=== PATIENT | female | born 1945 | race Hispanic/Latino ===

== ENCOUNTER 2020-05-04 16:55 | Emergency (ER) | payer MEDICARE ==
--- NOTE | 2020-05-04 17:10 | Event Note ---
ED Screening Note ED Screening Note: Patient is a 74-year-old female that comes to the emergency room with swelling of her feet and shortness of breath. 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 During triage process oxygen saturation on room air noted to be mid 80s. With deep breathing it did come up into the low 90s. This initial assessment/diagnostic orders/clinical plan/treatment(s) is/are subject to change based on patients health status, clinical progression and re- assessment by fellow clinical providers in the ED. Further treatment and workup at subsequent clinical providers discretion. Patient/guardian urged not to elope from the ED as their condition may be serious if not clinically assessed and managed. Initial orders include: EKG x-ray Labs UA
[2020-05-04 17:45] LABS: Basophils # (Auto) 0.1 K/mm3 (0.0-0.1); Basophils % (Auto) 0.9 % (0.0-1.8); Eosinophils # (Auto) 0.2 K/mm3 (0.0-0.4); Eosinophils % (Auto) 2.8 % (0.0-4.3); Hematocrit 37.8 % (30.3-42.9); Hemoglobin 12.6 gm/dl (10.1-14.3); Lymphocytes # (Auto) 2.2 K/mm3 (1.2-5.4); Lymphocytes % (Auto) 28.5 % (13.4-35.0); Mean Corpuscular HGB Conc 33 % (30-34); Mean Corpuscular Volume 87 fl (79-97); Monocytes # (Auto) 0.8 K/mm3 (0.0-0.8); Monocytes % (Auto) 10.7 % (0.0-7.3); Platelet Count 219 K/mm3 (140-440); Red Blood Count 4.36 M/mm3 (3.65-5.03); Red Cell Distribution Width 15.4 % (13.2-15.2)
--- NOTE | 2020-05-04 17:53 | Emergency Department Report ---
ED General Adult HPI - General Stated complaint: SOB/SWOLLEN FEET PUI?: No Time Seen by Provider: 05/04/20 17:09 Source: patient, family Mode of arrival: Ambulatory Limitations: No Limitations - History of Present Illness Initial comments: Patient is a very pleasant 74-year-old female that comes to the ER with a one-week history of shortness of breath with activity and bilateral lower feet edema. Patient denies fever or chills. Patient denies any chest pain. Patient has no history of acute coronary syndrome or stroke. PCP is Dr. Sen Patient is a previous smoker she reports quitting 4 years ago. However, she states that she has never been told that she had chronic bronchitis or emphysema. She is not on home oxygen. Ms. Rosa is high functioning and appears younger than stated age. She is in no acute distress on arrival to [facility]. -: Gradual, week(s) (1) Improves with: none Worsens with: none Associated Symptoms: shortness of breath. denies: confusion, chest pain, cough, diaphoresis, fever/chills, headaches, loss of appetite, malaise, nausea/vomiting, rash, seizure, syncope, weakness Treatments Prior to Arrival: none - Related Data Allergies Allergy/AdvReac Type Severity Reaction Status Date / Time No Known Allergies Allergy Unverified 06/07/18 10:18 ED Review of Systems ROS: Stated complaint: SOB/SWOLLEN FEET Other details as noted in HPI Comment: All other systems reviewed and negative ED Past Medical Hx - Past Medical History Previous Medical History?: Yes Hx Hypertension: Yes Hx CVA: No Hx Heart Attack/AMI: No Hx Congestive Heart Failure: No Hx Diabetes: No Hx Deep Vein Thrombosis: No Hx Pulmonary Embolism: No Hx GERD: No Hx Liver Disease: No Hx Renal Disease: No Hx of Cancer: No Hx Sickle Cell Disease: No Hx Arthritis: Yes (gout) Hx Headaches / Migraines: No Hx Seizures: No Hx Kidney Stones: No Hx Psychiatric Treatment: No Hx Asthma: No Hx COPD: No Hx Tuberculosis: No Hx Dementia: No Hx HIV: No Additional medical history: chronic back pain. hpld - Surgical History Past Surgical History?: Yes Additional Surgical History: hysterectomy - Family History Family history: no significant - Social History Smoking Status: Former Smoker (quit 4 y ago) Substance Use Type: None ED Physical Exam - General General appearance: alert, in no apparent distress - Head Head exam: Present: atraumatic, normocephalic - Eye Eye exam: Present: normal appearance - ENT ENT exam: Present: mucous membranes moist - Neck Neck exam: Present: normal inspection - Respiratory Respiratory exam: Present: normal lung sounds bilaterally. Absent: respiratory distress - Cardiovascular Cardiovascular Exam: Present: regular rate, normal rhythm. Absent: systolic murmur, diastolic murmur, rubs, gallop - Expanded Cardiovascular Exam Expanded Peripheral pulses: 2+: Posterior Tibialis (R), Posterior Tibialis (L), Dorsalis Pedis (R), Dorsalis Pedis (L) - GI/Abdominal GI/Abdominal exam: Present: soft, normal bowel sounds - Rectal Rectal exam: Present: deferred - Extremities Exam Extremities exam: Present: normal inspection - Back Exam Back exam: Present: normal inspection - Neurological Exam Neurological exam: Present: alert, oriented X3 - Psychiatric Psychiatric exam: Present: normal affect, normal mood - Skin Skin exam: Present: warm, dry, intact, normal color. Absent: rash ED Course Vital Signs 05/04/20 17:16 Temperature 98.2 F Pulse Rate 71 Respiratory 20 Rate Blood Pressure 119/51 O2 Sat by Pulse 92 Oximetry - Reevaluation(s) Reevaluation #1: 05/04/20 17:53 home rx remeron lexapro lisinopril statin Reevaluation #2: 05/04/20 18:53 PROVIDER HAS WALKED PT WITH BASELINE SAT 93 AND AFTER WALKING 200 FT SAT 95 ON ROOM AIR.. FAMILY UPDATED ON PLAN OF CARE ED Medical Decision Making - Lab Data Result diagrams: 05/04/20 17:23 05/04/20 17:23 - EKG Data -: EKG Interpreted by Ri EKG shows normal: sinus rhythm Rate: normal - EKG Data When compared to previous EKG there are: no significant change, changes noted Interpretation: no acute changes, normal EKG - Radiology Data Radiology results: report reviewed, image reviewed [facility] - Medical Decision Making Labs 05/04/20 05/04/20 17:23 17:23 WBC 7.9 RBC 4.36 Hgb 12.6 Hct 37.8 MCV 87 MCH 29 MCHC 33 RDW 15.4 H Plt Count 219 Lymph % (Auto) 28.5 [place] % (Auto) 10.7 H Eos % (Auto) 2.8 Baso % (Auto) 0.9 Lymph # 2.2 [place]ro # 0.8 Eos # 0.2 Baso # 0.1 Seg Neutrophils % 57.1 Seg Neutrophils # 4.5 Sodium 139 Potassium 3.7 Chloride 103.4 Carbon Dioxide 23 Anion Gap 16 BUN 13 Creatinine 1.0 Estimated GFR 54 BUN/Creatinine Ratio 13 Glucose 121 H Calcium 9.2 Total Bilirubin 0.30 AST 27 ALT 20 Alkaline Phosphatase 150 H Troponin T < 0.010 Total Protein 7.3 Albumin 3.9 Albumin/Globulin Ratio 1.1 Vital Signs 05/04/20 17:16 Temperature 98.2 F Pulse Rate 71 Respiratory 20 Rate Blood Pressure 119/51 O2 Sat by Pulse 92 Oximetry Potassium noted to be 3.7. Supplementation of K. Dur given. Twelve-lead EKG shows no ST elevation or depression. Chest x-ray reveals no consolidation suggestive of pneumonia. She has no diffuse infiltrates suggestive of COVID. No perihilar congestion suggestive of early heart failure. Troponin is negative. Creatinine 1. Glucose noted to be 121. Patient is nondiabetic. Alk phos noted to be 150. This is a nonspecific number her other LFTs are normal. T bili 0.3. BNP noted FAMILY UPDATED ON LABS/ FINDINGS. PT TO DC HOME WITH FOLLOW UP WITH PCP FOR RECHECK IN 24-48 HOURS. - Differential Diagnosis ro chf/ro acs/ro covid/uri Critical care attestation.: If time is entered above; I have spent that time in minutes in the direct care of this critically ill patient, excluding procedure time. ED Disposition Clinical Impression: SOB (shortness of breath) Disposition: DC-01 TO HOME OR SELFCARE Is pt being admited?: No Does the pt Need Aspirin: No Condition: Stable Additional Instructions: FOLLOW UP WITH PCP FOR RECHECK IN 24-48 HOURS FOR RECHECK Referrals: TERRANCE SEN MD [Referring] - 3-5 Days Time of Disposition: 17:52
[2020-05-04 17:57] LABS: Alanine Aminotransferase 20 units/L (7-56); Albumin 3.9 g/dL (3.9-5); BUN/Creatinine Ratio 13; Blood Urea Nitrogen 13 mg/dL (7-17); Calcium 9.2 mg/dL (8.4-10.2); Hemolysis Index 2
[2020-05-04] MEDS ORDERED: POTASSIUM CHLORIDE ER 20 MEQ TAB PO ONE ×2 (17:57→18:06)
--- NOTE | 2020-05-04 17:58 | XRay Report ---
CHEST 2 VIEWS INDICATION / CLINICAL INFORMATION: SOB. COMPARISON: None available. FINDINGS: SUPPORT DEVICES: None. HEART / MEDIASTINUM: Diffuse atherosclerotic change in the thoracic aorta LUNGS / PLEURA: No significant pulmonary or pleural abnormality. No pneumothorax. ADDITIONAL FINDINGS: No significant additional findings. IMPRESSION: Diffuse atherosclerotic changes seen in the thoracic aorta. No definite acute disease Signer Name: Jose Rubio MD FACR Signed: 05/04/2020 5:53 PM Workstation Name: [id number]
[2020-05-04 18:39] LABS: Bacteria,Urine 1+ /HPF (Negative); Bilirubin,Urine NEG (Negative); Blood,Urine SM (Negative); Color,Urine Yellow (Yellow); Mucus,Urine FEW /HPF; Protein,Urine <15 mg/dL mg/dL (Negative); Urobilinogen,Urine < 2.0 mg/dL (<2.0)
[2020-05-04 19:17] VITALS: BP 151/62
== END 2020-05-04 19:16 | disposition home or self-care (01) ==
LOC: ED 16:55
DX: R06.02 Shortness of breath (principal); I10 Essential (primary) hypertension; M19.90 Unspecified osteoarthritis, unspecified site; Z90.710 Acquired absence of both cervix and uterus; Z87.891 Personal history of nicotine dependence
CPT/HCPCS: 36415; 71046; 80053; 81001; 83880; 84484; 85025; 87086; 93005

== ENCOUNTER 2020-09-04 16:34 | Emergency (ER) | payer MEDICARE ==
[2020-09-04 16:42] VITALS: BP 141/57
--- NOTE | 2020-09-04 16:44 | Emergency Department Report ---
ED Female HPI - General Chief complaint: Urogenital-Female Stated complaint: POSS UTI Source: patient, family Mode of arrival: Ambulatory Limitations: No Limitations - History of Present Illness Initial comments: The patient was evaluated in the emergency department for symptoms described in the history of present illness. He/she was evaluated in the context of the global COVID-19 pandemic, which necessitated consideration that the patient might be at risk for infection with the virus that causes COVID-19. Institutional protocols and algorithms that pertain to the evaluation of patients at risk for COVID-19 are in a state of rapid change based on information released by regulatory bodies including the CDC and federal and state organizations. These policies and algorithms were followed during the patient's care in the emergency department. Please note that these policies, procedures and recommendations changed on a rapid basis. 74-year-old female comes in for urinary discomfort. Denies any urinary frequency no fever no chills no nausea no vomiting no abdominal pain. She states that she changed her incontinence supplies and now is having dysuria. She has a history of depression no thoughts of hurting herself or others. She is at high blood pressure takes her blood pressure medications on a daily basis. MD Complaint: dysuria Onset/Timin -: days(s) Location: suprapubic Severity: mild Severity scale (0 -10): 0 Quality: burning Consistency: intermittent Improves with: none Worsens with: urination Are you Now?: No Associated Symptoms: denies other symptoms - Related Data Sexually active: No Allergies Allergy/AdvReac Type Severity Reaction Status Date / Time No Known Allergies Allergy Unverified 06/07/18 10:18 ED Review of Systems ROS: Stated complaint: POSS UTI Other details as noted in HPI Comment: All other systems reviewed and negative ED Past Medical Hx - Past Medical History Previous Medical History?: Yes Hx Hypertension: Yes Hx CVA: No Hx Heart Attack/AMI: No Hx Congestive Heart Failure: No Hx Diabetes: No Hx Deep Vein Thrombosis: No Hx Pulmonary Embolism: No Hx GERD: No Hx Liver Disease: No Hx Renal Disease: No Hx Sickle Cell Disease: No Hx Arthritis: Yes (gout) Hx Headaches / Migraines: No Hx Seizures: No Hx Kidney Stones: No Hx Psychiatric Treatment: No Hx Asthma: No Hx COPD: No Hx Tuberculosis: No Hx Dementia: No Hx HIV: No Additional medical history: chronic back pain. hpld - Surgical History Past Surgical History?: Yes Additional Surgical History: hysterectomy - Social History Smoking Status: Current Every Day Smoker Substance Use Type: None ED Physical Exam - General Limitations: No Limitations General appearance: alert, in no apparent distress - Head Head exam: Present: atraumatic, normocephalic - Eye Eye exam: Present: normal appearance - ENT ENT exam: Present: mucous membranes moist - Neck Neck exam: Present: normal inspection - Respiratory Respiratory exam: Present: normal lung sounds bilaterally. Absent: respiratory distress - Cardiovascular Cardiovascular Exam: Present: regular rate, normal rhythm. Absent: systolic murmur, diastolic murmur, rubs, gallop - GI/Abdominal GI/Abdominal exam: Present: soft, normal bowel sounds - Extremities Exam Extremities exam: Present: normal inspection - Back Exam Back exam: Present: normal inspection - Neurological Exam Neurological exam: Present: alert, oriented X3 - Psychiatric Psychiatric exam: Present: normal affect, normal mood - Skin Skin exam: Present: warm, dry, intact, normal color. Absent: rash ED Course Vital Signs 09/04/20 09/04/20 16:40 16:44 Temperature 98.2 F Pulse Rate 70 Respiratory 16 Rate Blood Pressure 141/57 O2 Sat by Pulse 96 Oximetry ED Medical Decision Making - Medical Decision Making 74-year-old female comes in for urinary discomfort. Denies any urinary frequency no fever no chills no nausea no vomiting no abdominal pain. She states that she changed her incontinence supplies and now is having dysuria. She has a history of depression no thoughts of hurting herself or others. She is at high blood pressure takes her blood pressure medications on a daily basis. Urinalysis ordered and sent out. Urinalysis is negative for any acute findings. Critical care attestation.: If time is entered above; I have spent that time in minutes in the direct care of this critically ill patient, excluding procedure time. ED Disposition Clinical Impression: Urinary frequency, History of urinary incontinence Disposition: DC-01 TO HOME OR SELFCARE Is pt being admited?: No Does the pt Need Aspirin: No Condition: Stable Instructions: Urinary Frequency, Adult Additional Instructions: For sure to increase your fluid intake. Follow-up with your urologist or LOAN ASSISTANT. Referrals: MARINE HASSAN MD [Staff Physician] - 3-5 Days
== END 2020-09-04 18:34 | disposition home or self-care (01) ==
LOC: ED 16:34
DX: R35.0 Frequency of micturition (principal); I10 Essential (primary) hypertension; M13.88 Other specified arthritis, other site; F17.200 Nicotine dependence, unspecified, uncomplicated; Z90.710 Acquired absence of both cervix and uterus
CPT/HCPCS: 99282

== ENCOUNTER 2021-03-13 00:58 | Emergency (ER) | payer MEDICARE ==
[2021-03-13 01:18] VITALS: BP 121/56
--- NOTE | 2021-03-13 01:37 | Emergency Department Report ---
ED Fall HPI - General Chief Complaint: Extremity Injury, Lower Stated Complaint: FALL/ANKLE PAIN AND SWELLING Time Seen by Provider: 03/13/21 01:24 Source: patient Mode of arrival: Ambulatory - History of Present Illness Initial Comments: Patient is 75 years old female with history of hypertension. Patient brought to the emergency room accompanied by her daughter for evaluation after a fall. Patient stated that she was going upstairs when she slipped and fell landed on her right knee and right foot and ankle. Patient is complaining of right foot and ankle pain. Patient denied any head injury, neck injury, chest or abdominal injury. No other extremity injury. Patient stated that she did not lose her consciousness and she did not have any symptoms prior to the fall. MD Complaint: fall -: hour(s) Fall From: standing Fall Witnessed: yes, by family Place Fall Occurred: home Loss of Consciousness: none Prolonged Down Time?: no Symptoms Prior to Fall: none Location - Extremities: Right: Knee, Ankle, Foot Quality: sharp Context: tripped/slipped Associated Symptoms: denies - Related Data Previous Rx's Medication Instructions Recorded Last Taken Type HYDROcodone/APAP 5-325 [[place] 1 each PO Q6HR PRN #14 tablet 03/13/21 Unknown Rx 5/325] Ondansetron [Zofran Odt] 4 mg PO Q8HR PRN #14 tab.rapdis 03/13/21 Unknown Rx Allergies Allergy/AdvReac Type Severity Reaction Status Date / Time No Known Allergies Allergy Unverified 06/07/18 10:18 ED Review of Systems ROS: Stated complaint: FALL/ANKLE PAIN AND SWELLING Other details as noted in HPI Comment: All other systems reviewed and negative Constitutional: denies: chills, fever Respiratory: denies: cough, shortness of breath, SOB with exertion Cardiovascular: denies: chest pain, palpitations Gastrointestinal: denies: abdominal pain, nausea, vomiting Musculoskeletal: denies: back pain Neurological: denies: headache, weakness ED Past Medical Hx - Past Medical History Hx Hypertension: Yes Hx CVA: No Hx Heart Attack/AMI: No Hx Congestive Heart Failure: No Hx Diabetes: No Hx Deep Vein Thrombosis: No Hx Pulmonary Embolism: No Hx GERD: No Hx Liver Disease: No Hx Renal Disease: No Hx Sickle Cell Disease: No Hx Arthritis: Yes (gout) Hx Headaches / Migraines: No Hx Seizures: No Hx Kidney Stones: No Hx Psychiatric Treatment: No Hx Asthma: No Hx COPD: No Hx Tuberculosis: No Hx Dementia: No Hx HIV: No Additional medical history: chronic back pain. hpld - Surgical History Additional Surgical History: hysterectomy - Social History Smoking Status: Never Smoker Substance Use Type: None - Medications Home Medications: Home Medications Medication Instructions Recorded Confirmed Last Taken Type HYDROcodone/APAP 5-325 [[place] 1 each PO Q6HR PRN #14 tablet 03/13/21 Unknown Rx 5/325] Ondansetron [Zofran Odt] 4 mg PO Q8HR PRN #14 tab.rapdis 03/13/21 Unknown Rx ED Physical Exam - General Limitations: No Limitations General appearance: alert, in no apparent distress - Head Head exam: Present: atraumatic, normocephalic, normal inspection - Eye Eye exam: Present: normal appearance, PERRL - ENT ENT exam: Present: normal exam, normal orophraynx, mucous membranes moist - Neck Neck exam: Present: normal inspection, full ROM. Absent: tenderness, meningismus - Respiratory Respiratory exam: Present: normal lung sounds bilaterally - Cardiovascular Cardiovascular Exam: Present: bradycardia - GI/Abdominal GI/Abdominal exam: Present: soft, normal bowel sounds. Absent: distended, tenderness, guarding, rebound, rigid, organomegaly, mass, bruit, pulsatile mass, hernia - Extremities Exam Extremities exam: Present: normal inspection, full ROM, normal capillary refill - Expanded Lower Extremity Exam Right Hip exam: Present: normal inspection, full ROM. Absent: tenderness, swelling, abrasion Upper Leg exam: Present: normal inspection, full ROM. Absent: tenderness, swelling Knee exam: Present: normal inspection, full ROM, tenderness, abrasion. Absent: swelling Lower Leg exam: Present: normal inspection, full ROM. Absent: tenderness, swelling, abrasion Ankle exam: Present: tenderness, swelling Foot/Toe exam: Present: normal inspection, tenderness, swelling Neuro vascular tendon exam: Present: no vascular compromise - Back Exam Back exam: Present: normal inspection, full ROM. Absent: CVA tenderness (R), CVA tenderness (L) - Neurological Exam Neurological exam: Present: alert, oriented X3, CN II-XII intact - Skin Skin exam: Present: warm, dry, intact ED Course Vital Signs 03/13/21 01:15 Temperature 97.9 F Pulse Rate 59 L Respiratory 18 Rate Blood Pressure 121/56 O2 Sat by Pulse 97 Oximetry - Orthopedic Splinting/Casting Injury #1 Side: right Lower Extremity Injury Location: ankle Lower Extremity Immobilizer: posterior splint Other Orthopedic Equipment: crutches ED Medical Decision Making - Radiology Data Radiology results: report reviewed - Medical Decision Making Patient is 75 years old female with history of hypertension. Patient brought to the emergency room accompanied by her daughter for evaluation after a fall. Patient stated that she was going upstairs when she slipped and fell landed on her right knee and right foot and ankle. Patient is complaining of right foot and ankle pain. Patient denied any head injury, neck injury, chest or abdominal injury. No other extremity injury. Patient stated that she did not lose her consciousness and she did not have any symptoms prior to the fall. X-ray of the right ankle showed right fibula fracture distally with no dislocation. Right knee x-ray is unremarkable. Posterior splint applied and patient given follow-up with Dr. Hancock, orthopedics in the next 2 to 3 days. Patient and daughter advised to return to the ER if patient develop any new symptoms. Critical care attestation.: If time is entered above; I have spent that time in minutes in the direct care of this critically ill patient, excluding procedure time. ED Disposition Clinical Impression: Fall, Closed right fibular fracture Disposition: DC- TO HOME OR SELFCARE Is pt being admited?: No Condition: Stable Instructions: Nondisplaced Fibular Ankle Fracture Treated With Immobilization, Adult Prescriptions: HYDROcodone/APAP 5-325 [[place] 5/325] 1 each PO Q6HR PRN #14 tablet PRN Reason: Pain Ondansetron [Zofran Odt] 4 mg PO Q8HR PRN #14 tab.rapdis PRN Reason: Nausea And Vomiting Referrals: CHRIS HANCOCK MD [Staff Physician] - 3-5 Days
--- NOTE | 2021-03-13 01:50 | XRay Report ---
RIGHT KNEE 3 VIEWS INDICATION / CLINICAL INFORMATION: Right knee injury. COMPARISON: None available. FINDINGS: BONES and JOINT(S): No acute fracture or subluxation. 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 The bones are demineralized. SOFT TISSUES: No acute abnormality. Moderate atherosclerosis is present along the thigh and knee. ADDITIONAL FINDINGS: None. IMPRESSION: 1. No acute findings. Signer Name: Yoshi Tan MD Signed: 03/13/2021 1:46 AM Workstation Name: [id number]
--- NOTE | 2021-03-13 02:11 | XRay Report ---
RIGHT ANKLE 3 VIEWS INDICATION / CLINICAL INFORMATION: right ankle pain COMPARISON: None available. FINDINGS: BONES and JOINT(S): There is an acute oblique fracture through the distal third of the fibular shaft. No dislocation. No significant arthritis. SOFT TISSUES: Moderate edema is seen anteriorly and laterally along the ankle. No other significant a bnormality. ADDITIONAL FINDINGS: None. IMPRESSION: Acute fracture of the distal right fibula as above. Signer Name: Yoshi Tan MD Signed: 03/13/2021 2:06 AM Workstation Name: [id number]
== END 2021-03-13 03:48 | disposition home or self-care (01) ==
LOC: ED 00:58
DX: S82.401A Unspecified fracture of shaft of right fibula, initial encounter for closed fracture (principal); I10 Essential (primary) hypertension; M10.9 Gout, unspecified; Z79.899 Other long term (current) drug therapy; Z90.710 Acquired absence of both cervix and uterus; W01.0XXA Fall on same level from slipping, tripping and stumbling without subsequent striking against object, initial encounter; Y93.89 Activity, other specified; Y92.098 Other place in other non-institutional residence as the place of occurrence of the external cause; Y99.8 Other external cause status